=== PATIENT | female | born 1990 | race Caucasian/White ===

== ENCOUNTER 2022-07-13 12:33 | Inpatient (IN) | payer MEDICAID ==
[~2022-07-13] VITALS: Ht 165.1 cm; Wt 114.8 kg
[2022-07-13 12:46] VITALS: BP 144/98
--- NOTE | 2022-07-13 12:59 | NUR ---
32 y/o female bib self, pt was seen in [facility] office for check up, denies any c/o such as pelvic pain, abd pain, vaginal discharge, bleeding, fever, cp or sob. pt was told by md to come to er for further eval in relation to decreased heart tones. a&ox4, ambulates with steady gait. lung sounds clear bl, heart tones even and regular. 1G 0P 0T 0A 0L pmh: denies nka med: denies
--- NOTE | 2022-07-13 13:12 | NUR ---
rachael swabbed and sent to lab
--- NOTE | 2022-07-13 13:17 | NUR ---
labs drawn from iv bedside and given to lab, sophia monzon
--- NOTE | 2022-07-13 13:18 | NUR ---
Ultrasound at bedside.
[2022-07-13 14:06] LABS: ALBUMIN 3.3 g/dL (3.4-5.0); ANION GAP 13.3 (8-16); CARBON DIOXIDE 23.4 mmol/L (21-32); CREATININE 0.7 mg/dL (0.6-1.3); POTASSIUM 3.7 mmol/L (3.5-5.1); TOTAL BILIRUBIN 0.2 mg/dL (0.0-1.0)
[2022-07-13 14:16] LABS: BASOPHILS % (AUTO) 0.3 % (0.0-2.0); EOSINOPHILS # (AUTO) 0.1 K/uL (0-0.4); EOSINOPHILS % (AUTO) 1.3 % (0.0-4.0); HEMOGLOBIN 13.2 g/dL (12.0-16.0); LYMPHOCYTES # (AUTO) 2.2 K/uL (2.5-16.5); LYMPHOCYTES % (AUTO) 20.7 % (20.5-51.1); MEAN CORPUSCULAR HEMOGLOBIN 29 pg (27-31); MEAN CORPUSCULAR HGB CONC 34 g/dL (33-37); MONOCYTES # (AUTO) 0.8 K/uL (0.8-1.0); MONOCYTES % (AUTO) 7.2 % (1.7-9.3); NEUTROPHILS # (AUTO) 7.5 K/uL (1.8-7.7); NEUTROPHILS % (AUTO) 70.5 % (42.2-75.2); PLATELET COUNT (AUTO) 317 K/uL (140-450); RED BLOOD CELL COUNT(AUTO) 4.53 MIL/uL (4.20-5.40); RED CELL DISTRIBUTION WIDTH 13.4 % (11.6-13.7); WHITE BLOOD COUNT (AUTO) 10.7 K/uL (4.8-10.8)
[2022-07-13] MEDS ORDERED: MORPHINE SULFATE 2 MG/ML SYR IVP PRN ×2 (16:25→18:40)
[2022-07-13] MEDS: NACL 0.9% 1,000 ML IV SCH (17:20)
[2022-07-13] MEDS: MISOPROSTOL 200 MCG TAB PO SCH ×2 (17:20→21:20)
--- NOTE | 2022-07-13 17:34 | NUR ---
Patient appears to be resting comfortably in bed. Vital Signs within normal limits. Respirations even and unlabored.
[2022-07-13] MEDS ORDERED: MISOPROSTOL 200 MCG TAB PO SCH (18:00)
--- NOTE | 2022-07-13 18:48 | NUR ---
Patient will be admitted to care of Eliezer CHAN. Admitted to L&D/. Will go to room 210. Belongings list completed.
--- NOTE | 2022-07-13 18:51 | NUR ---
Pt report given to L&D. Transfer of care at this time.
[2022-07-13 20:02] VITALS: BP 135/76
[2022-07-14] MEDS ORDERED: MORPHINE SULFATE 10 MG/ML VIAL ONE (01:12)
[2022-07-14 01:18] VITALS: BP 142/87
[2022-07-14] MEDS: MISOPROSTOL 200 MCG TAB PO SCH (01:23)
[2022-07-14] MEDS: NACL 0.9% 1,000 ML IV SCH (04:01)
[2022-07-14] MEDS ORDERED: CAMERA MC ONE (06:52)
--- NOTE | 2022-07-14 09:09 | NUR ---
PATIENT HAS BEEN SCREENED AND CATEGORIZED LOW NUTRITION RISK. PATIENT WILL BE SEEN WITHIN 7 DAYS OF ADMISSION. 07/20/22 REVIEWED BY RESHMA SUT[address]
== END 2022-07-14 10:00 | disposition home or self-care (01) | DRG 560 ==
LOC: MED 12:33 → MMU 14:55 → MFCC 18:32
PROVIDERS: ADMIT Obstetrics & Gynecology; ATTEND Obstetrics & Gynecology
PROC: 10E0XZZ Delivery of Products of Conception, External Approach (ICD-10-PCS; principal; 2022-07-13)
DX: O36.4XX0 Maternal care for intrauterine death, not applicable or unspecified (principal); Z37.1 Single stillbirth; Z20.822 Contact with and (suspected) exposure to COVID-19; Z3A.13 13 weeks gestation of pregnancy
CPT/HCPCS: 36415; 59200; 59409; 76801; 76815; 80053; 85025; 86886; 86900; 86901; 99285; J2270; Q0092